=== PATIENT | male | born 1970 | race Asian ===

== ENCOUNTER 2024-03-31 09:53 | Emergency (ER) | payer SELFPAY ==
[2024-03-31] MEDS ORDERED: Acetaminophen 500 MG TAB ONE (10:57)
== END 2024-03-31 12:23 | disposition home or self-care (01) ==
LOC: CSHERS 09:53
DX: S01.21XA Laceration without foreign body of nose, initial encounter (principal); S40.211A Abrasion of right shoulder, initial encounter; F17.210 Nicotine dependence, cigarettes, uncomplicated; Y04.0XXA Assault by unarmed brawl or fight, initial encounter
CPT/HCPCS: 70450; 72125